=== PATIENT | female | born 1985 | race Caucasian/White ===

== ENCOUNTER 2019-11-29 16:11 | Emergency (ER) | payer MEDICAID ==
[~2019-11-29] VITALS: Ht 170.2 cm; Wt 63.5 kg
[2019-11-29 16:11] VITALS: BP_SYST 107
[2019-11-29] MEDS ORDERED: NAPROXEN 250 MG TABLET PO SCH ×2 (16:30→16:45)
[2019-11-29 16:55] VITALS: BP_SYST 106
[2019-11-29] MEDS ORDERED: NAPROXEN 250 MG TABLET PO ONE (17:00)
== END 2019-11-29 16:55 | disposition home or self-care (01) ==
LOC: SED 16:11
DX: S86.812A Strain of other muscle(s) and tendon(s) at lower leg level, left leg, initial encounter (principal); F32.9 Major depressive disorder, single episode, unspecified; W18.39XA Other fall on same level, initial encounter; Y93.89 Activity, other specified; Y92.89 Other specified places as the place of occurrence of the external cause; Y99.8 Other external cause status
CPT/HCPCS: 73564; 99283